=== PATIENT | male | born 1950 | race Caucasian/White ===

== ENCOUNTER 2021-02-10 13:55 | Outpatient (CLI) | payer MEDICARE, SELFPAY ==
--- NOTE | 2021-02-10 14:01 | ECHO_ITS ---
Patient Info Name: Simeon Montoya Age: 70 years : 1950 Gender: Male Ht: 73 in Wt: 280 lbs BSA: 2.60 m2 HR: 75 bpm BP: 147 / 90 mmHg Exam Date: 02/10/2021 2:03 PM Exam Location: [facility] Pulmonary Patient Status: Outpatient Admit Date: 02/10/2021 Staff Ordering Physician: Merrick Saha MD Income Tax Advisor: BETSY Attending Provider: Merrick Saha MD Referring Physician: Yifan FELICIANO; Exam Type: CA echo doppler color flow Study Info Indications R00.2 - Palpitations Complete two-dimensional, color flow and Doppler transthoracic echocardiogram is performed. Summary 1. Complete two-dimensional, color flow and Doppler transthoracic echocardiogram is performed. 2. Left ventricular chamber dimension is mildly enlarged. 3. Left ventricular systolic function is normal, estimated at 60-65%. 4. The left ventricular diastolic function is abnormal. 5. E/e' 14 is mildly elevated. 6. Left atrial chamber dimension is mildly enlarged. 7. There is mild mitral valve regurgitation. 8. There is trace tricuspid valve regurgitation. 9. No pulmonary hypertension, estimated pulmonary arterial systolic pressure is 11 mmHg. Left Ventricle E/e' 14 is mildly elevated. Left ventricular chamber dimension is mildly enlarged. Left ventricular systolic function is normal, estimated at 60-65%. The left ventricular diastolic function is abnormal. Right Ventricle Right ventricular chamber dimension is normal. Right ventricular systolic function is normal. Left Atria Left atrial chamber dimension is mildly enlarged. Right Atria Right atrial chamber dimension is normal. Aortic Valve The aortic valve is trileaflet. There is no aortic valve stenosis. There is no aortic valve regurgitation. Pulmonic Valve There is no pulmonic regurgitation. Mitral Valve There is no mitral valve stenosis. There is mild mitral valve regurgitation. Tricuspid Valve There is trace tricuspid valve regurgitation. No pulmonary hypertension, estimated pulmonary arterial systolic pressure is 11 mmHg. Pericardium/Pleural There is no pericardial effusion. Inferior Vena Cava Normal inferior vena cava with >50% collapse upon inspiration consistent with normal right atrial pressure, 5 mmHg. Aorta The aortic root size at the sinus of Valsalva is normal. Left Ventricular Outflow Tract Name Value Normal LVOT 2D LVOT Diameter 2.3 cm LVOT Doppler LVOT Peak Gradient 7 mmHg LVOT Mean Gradient 4 mmHg LVOT VTI 31 cm LVOT VTI/AV VTI Ratio 1.0 LVOT Stroke Volume 128 ml LVOT CO 22.1 l/min LVOT CI 8.5 l/min/m2 Mitral Valve Name Value Normal MV Doppler MV Decel [place]
== END 2021-02-10 13:56 | disposition home or self-care (01) ==
LOC: ANHCARD 13:57
PROVIDERS: PCP Internal Medicine; Visit Provider Internal Medicine
DX: I45.10 Unspecified right bundle-branch block (principal); R94.31 Abnormal electrocardiogram [ECG] [EKG]; I34.0 Nonrheumatic mitral (valve) insufficiency
CPT/HCPCS: 93306

== ENCOUNTER 2024-07-03 00:51 | Day surgery (SDC) | payer MEDICARE, SELFPAY ==
[2024-06-19 14:03] VITALS: BMI 30.2
--- OUTSIDE RECORDS SUMMARY | 2024-07-03 00:53 | XMS_ITS | Continuity of Care Document ---
Author Organization [facility] Address [address] [place] [address] Phone Care Team Providers Care Fraud Analyst Name Role Phone [facility], [employer] Includes [facility] Unavailable Unavail able Summer Kaufman Unavailable Unavailable Procedures Procedure Date Frame - Up To $135 TF Plastic Sphcyl [place] To +/-4d .122d Miscellaneous Vision Service - Supplies Anti-reflective Coating Eye Exam & Treatment Refraction No Charge Glasses Check Vision Svcs Frames Purchases TF Plastic Sphcyl [place] To +/-4d .12-2d Anti-reflective Coating Eye Exam & Treatment Refraction Advance Directives Directive Yes / No Effective Date File Name No Information Encounters Encounter Description Practice Location Reason(s) For Visit Diagnoses Date Provider Providers Copied on Encounter [facility], [address], [place], [place], [id number], [place] tel:[phone] [facility] No Information 4200 9 [facility] . [address] [facility] [address] [facility] [address], [place], [place], [address], [place]. tel:[phone] Referring Provider: Cosme Broderick, [address], [place], [address]. tel:[phone] sulting Provider: Summer Kaufman, [address] [place] [address], [address]. tel:[phone] [facility], [address], [place], [place], [id number], [place] tel:[phone] [facility] No Information Dec-0 8-200 9 Casillas OD Cosme. [address], [place], [place], Formerly named [facility], . tel:[phone] [facility], [address] [place] [address] [address], [place], [place], [id number], [place] tel:[phone] [facility] No Information 2 6200 [address] Casillas OD Cosme. [address], [place], [place], Formerly named [facility], . tel:[phone] [facility], [address] [place] [address] [address], [place], [place], [address], [place] tel:[phone] [facility] No Information 3 1200 7 Optical Shop [facility] . [address] [facility], [place], [place], [address], . tel:[phone] Referring Provider: Cosme Broderick, [facility] [address], [place], [address]. tel:[phone] sulting Provider: Summer Kaufman, [address] [place] [address], Formerly named [facility]. tel:[phone] [facility], [address] [place] [address] [address], [place], [place], [address], [place] tel:[phone] [facility] No Information 1 1-200 7 Casillas OD Cosme. [address], [place], [address], . tel:[phone] Family History Family Member Type Diagnosis Age At Onset No Information Payers Payer name Insurance type Covered libertarian ID Wendy penaloza(s) [employer] Vision Plan CI [id number] Social History Type Description Quantity Date Captured Comments Sex Male Smoking Status No Information Chief Complaint And Reason For Visit No Information Reason For Referral Reason For Referral No Information History Of Present Illness Encounter Date Complaint History Of Prese nt Illness No Information Functional Status Date Functional Assessmen t No Information Instructions Date Instruction Additional Infor mation No Information Assessments Type Assessment Date No Information Patient Care Teams Name Effective Dates (start - stop) Status Members No Information
--- OUTSIDE RECORDS SUMMARY | 2024-07-03 00:53 | XMS_ITS | Patient Health Summary ---
Author Organization [facility] Address [address] [facility] [place] [address] Care Team Providers Care Cambering Machine Operator Name Role Phone Unavailable Primary Care Provider Unavailabl e Note from [facility],non-owned Affiliates and Associated Physician Practices is amultiple site organization consisting of ambulatory clinics and hospital sitesin [place], [place], [place] and [place]. This disclosure is being madepursuant to the Care Everywhere program and may not contain all information available regarding this patient. Last updated 18.[facility] [employer] Social History Tobacco Use Types Packs/Day Years Used Date Smoking Tobacco: Never Assessed Sex and Gender Information Value Date Recorded Sex Assigned at Not on file Gender Identity Not on file Sexual Orientation Not on file Procedures * DERMATOPATHOLOGY(Performed 10/04/2017) * GROSS + MICRO EXAM(Performed 08/16/2005) Results * DERMATOPATHOLOGY (10/04/2017 12:00 AM CDT) Case Report Dermatopathology Report Case: [id number] Authorizing Provider: Jeovany Duenas MD Collected: 10/04/2017 12:00 AM Pathologist: Shaylee Kelly MD Received: 10/05/2017 12:44 PM Specimen: Skin, left amrit anti helicis 8 1:57 PM CDT DERMATOPATHOLOGY LABORATORY Final Diagnosis Specimen A. SKIN, left amrit anti helicis: BENIGN VERRUCOUS KERATOSIS (L82.1) PRESENT AT MARGIN 8 1:57 PM CDT DERMATOPATHOLOGY LABORATORY Clinical History R/O BCC, ISK. Check margins. 8 1:57 PM CDT DERMATOPATHOLOGY LABORATORY Gross Description Specimen A: Received is one formalin filled container labeled with the patient's name and designated left amrit anti helicis. The specimen consists of a shave biopsy measuring [id number]. The margin is inked green. Jar 0. 1:57 PM CDT DERMATOPATHOLOGY LABORATORY Microscopic Description Specimen A. SKIN, left amrit anti helicis: Sections show hyperkeratosis, papillomatosis, hypergranulosis, and acanthosis. These histological findings can be seen in a verruca vulgaris or a seborrheic keratosis. This lesion is present at the margin of the specimen. 1:57 PM CDT DERMATOPATHOLOGY LABORATORY Disclaimer An external and internal positive and negative controls are appropriate for the histochemical, immunohistochemical and immunofluorescence stain(s) in this case (if any), except where stated explicitly. The performance characteristics of the stain(s) cited in this report were developed and its performance characteristic determined by the Dermatopathology Laboratory at [facility]. These tests need not be, and therefore are not, approved by the [place] Food and Drug Administration. The tests are used for clinical purposes. Billing Codes Specimen Charges Stain Charges 63135 1 1:57 PM CDT DERMATOPATHOLOGY LABORATORY Embedded Images 1:57 PM CDT DERMATOPATHOLOGY LABORATORY Pathology/Cytolog y TISSUE SPECIMEN FROM SKIN / Unknown 10/04/2017 10/05/2017 12:44 PM CDT Jeovany Duenas MD LAB - PATHOLOGY/CYTO LOGY ORDERABLES DERMATOPATHOLOGY LABORATORY [facility] - Department of Dermatology [address] [place] [address] 5th Floor Lab [address] [phone] * GROSS + MICRO EXAM (08/16/2005 2:15 PM CDT) Result CASE NUMBER [id number] Comment: ORDERING PHYSICIAN POOJA SUMNER SPECIMEN TYPE Colon Biopsy-rectal bx Date 08/16/2005 Physician Evans Sumner Gross Description The specimen is received in two containers labeled with the patient's name, Simeon Montoya. 1) The first container is labeled rectal. It consists of two 1 mm fragments of light jernigan tissue, all submitted in cassette A. 2) The second container is labeled rectal polyp. It consists of two 1 and 6 mm fragments of red jernigan tissue, the larger of which is bisected, and the specimen is entirely submitted in cassette B. LW alcocer Microscopic Exam Microscopic examination of sections labeled A reveal multiple fragments of colonic mucosa exhibiting an intact surface epithelium. No evidence of ulceration or erosion is seen. The crypts are tubular and lined by a normal goblet cell population. However, one fragment shows tubule exhibiting cryptitis and loss of mucin production. The surrounding stroma is edematous and shows marked vascular congestion with microfocal areas of hemorrhage. This same fragment exhibits surface epithelium also infiltrated with scattered polymorphonuclear leukocytes. However, a well- developed crypt abscesses are not seen. The changes described are focal with other portions of the bowel showing essentially normal histologic features. No evidence of crypt irregularity is seen. Granulomas are not identified. Evidence of coagulative necrosis are not seen. Pseudomembranes are not present. Microscopic examination of sections labeled B reveal multiple fragments of colonic mucosa, the surface epithelium of which is largely denuded. The fragments exhibit a lamina propria that is edematous and show irregular colonic glands that are variable in size and shape, but nevertherless, exhibiting a mucin-secreting epithelial lining. Many of the fragments show splaying of smooth muscle fibers between the colonic glands focally extending to the surface. The denuded epithelium shows no associated acute inflammatory changes. No evidence of malignancy is seen. RT/na Diagnosis I. Biopsy of rectum -- Acute colotis, focal, nonspecific II. 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 [place]. 08/17/2005 0927 <2> CPT code 35610z4 MISCELLANEOUS SAMPLES / Unknown 08/16/2005 2:15 PM CDT 08/16/2005 2:15 PM CDT Historical Provider LAB - PATHOLOGY/C YTOLOGY ORDERABLES
--- OUTSIDE RECORDS SUMMARY | 2024-07-03 00:53 | XMS_ITS | Referral Summary ---
Author Organization [facility] Address [address] [facility] [place] [address] Care Team Providers Care Seat Covers Trimmer Name Role Phone Unavailable Primary Care Provider Unavailabl e Source Comments [facility],non-owned Affiliates and Associated Physician Practices is amultiple site organization consisting of ambulatory clinics and hospital sitesin [place], [place], [place] and [place]. This disclosure is being madepursuant to the Care Everywhere program and may not contain all information available regarding this patient. Last updated 18.[facility] [employer] Social History Tobacco Use Types Packs/Day Years Used Date Smoking Tobacco: Never Assessed Sex and Gender Information Value Date Recorded Sex Assigned at Not on file Gender Identity Not on file Sexual Orientation Not on file Plan of Treatment Not on file
--- OUTSIDE RECORDS SUMMARY | 2024-07-03 00:53 | XMS_ITS | Encounter Summary ---
Author Organization [facility] Address [address] [facility] [place] [address] Care Team Providers Care Cloth Tester Quality Name Role Phone Unavailable Primary Care Provider Unavailabl e Encounter Details Date Type Department Care Team (Late st Contact Info) Description 10/05/2017 Lab Requisition [facility] Care DermPath Lab [address] [facility] [place] [address] Jeovany Duenas MD [address] [place] [address] Social History Tobacco Use Types Packs/Day Years Used Date Smoking Tobacco: Never Assessed Sex and Gender Information Value Date Recorded Sex Assigned at Not on file Gender Identity Not on file Sexual Orientation Not on file documented as of this encounter Plan of Treatment Not on file documented as of this encounter Procedures Procedure Name Priority Date/Time Associated Diagnosis Comments DERMATOPATHOLOGY Routine 10/04/2017 12:0 0 AM CDT documented in this encounter Results * DERMATOPATHOLOGY (10/04/2017 12:00 AM CDT) Case Report Dermatopathology Report Case: [id number] Authorizing Provider: Jeovany Duenas MD Collected: 10/04/2017 [...] specimen consists of a shave biopsy measuring [id number]. The margin is inked green. Jar 0. 1:57 PM T DERMATOPATHOLOGY LABORATORY Microscopic Description Specimen A. SKIN, left amrit anti helicis: Sections show hyperkeratosis, papillomatosis, hypergranulosis, and acanthosis. These histological findings can be seen in a verruca vulgaris or a seborrheic keratosis. This lesion is present at the margin of the specimen. 1:57 PM T DERMATOPATHOLOGY LABORATORY Disclaimer An external and internal positive and negative controls are appropriate for the histochemical, immunohistochemical and immunofluorescence stain(s) in this case (if any), except where stated explicitly. The performance characteristics of the stain(s) cited in this report were developed and its performance characteristic determined by the Dermatopathology Laboratory at [facility]. These tests need not be, and therefore are not, approved by the [place] Food and Drug Administration. The tests are used for clinical purposes. Billing Codes Specimen Charges Stain Charges 61911 1 8 1:57 PM CDT DERMATOPATHOLOGY LABORATORY Embedded Images 1:57 PM CDT DERMATOPATHOLOGY LABORATORY Pathology/Cytolog y TISSUE SPECIMEN FROM SKIN / Unknown 10/04/2017 10/05/2017 12:44 PM CDT Jeovany Duenas MD LAB - PATHOLOGY/CYTO LOGY ORDERABLES Performing Organization Address City/State/[facility] Co de Phone Number DERMATOPATHOLOGY LABORATORY [facility] - Department of Dermatology [address] [place] [address], 5th [place] [address], [facility] [phone] documented in this encounter Visit Diagnoses Not on filedocumented in this encounter
--- OUTSIDE RECORDS SUMMARY | 2024-07-03 00:53 | XMS_ITS | Clinical Summary ---
Author Organization [facility] [place] Address [address] [facility] [place] [address] Care Team Providers Care Flake Miller Helper Name Role Phone Unavailable Primary Care Provider Unavailabl e Source Comments [facility],non-owned Affiliates and Associated Physician Practices is amultiple site organization consisting of ambulatory clinics and hospital sitesin [place], [place], [place] and [place]. This disclosure is being madepursuant to the Care Everywhere program and may not contain all information available regarding this patient. Last updated 18.[facility] Social History Tobacco Use Types Packs/Day Years Used Date Smoking Tobacco: Never Assessed Sex and Gender Information Value Date Recorded Sex Assigned at Not on file Gender Identity Not on file Sexual Orientation Not on file Plan of Treatment Health Maintenance Due Date Last Done Comments COLOGUARD (AGES 45-75) - COL ON CA SCREENING 1950 COLON MONITORING 1950 COLONOSCOPY - COLON CA SCREENING 1950 CT COLONOGRAPHY - COLON CA SCREENING 1950 Colorectal Cancer Screening 1950 FIT - COLON CA SCREENING 1950 FLEX SIG - COLON CA SCREENING 1950 LIPID TESTING 1950 HEPATITIS C SCREENING 04/24/1970 DTAP/TDAP/TD VACCINES (1 - Tdap) 1971 PNEUMOCOCCAL VACCINE 50+ (1 of 1 - PCV) 2002 ZOSTER VACCINE (1 of 2) 2002 COVID-19 VACCINE ( - 2023-2 5 season) 2024 INFLUENZA VACCINE (#1) 2024 DEPRESSION SCREENING 05/09/2024 MEDICARE AWV CALENDAR YEAR 2024 Respiratory Syncytial Virus (RSV) Vaccine Pt: or over 60 yrs (1 - 1-dose 75+ series) 2027 HEPATITIS B VACCINE Aged Out No longe r eligible based on patient's age to complete this topic HIB VACCINE Aged Out No longer eligi ble based on patient's age to complete this topic HPV VACCINE Aged Out No longer eligi ble based on patient's age to complete this topic MENINGOCOCCAL (Group B) VACCINE Aged Out No longer eligible based on patient's age to complete this topic MENINGOCOCCAL VACCINE Aged Out No екатерина randy eligible based on patient's age to complete this topic
[2024-07-03 07:11] VITALS: BP 144/76; PULSE 78; RESP 18; TEMP 36.2; O2SAT 98; BMI 29.8
[2024-07-03] MEDS: LACTATED RINGERS 1,000 ML 150 ML IV CONT (07:18)
--- NOTE | 2024-07-03 07:18 | WPDANESEPPF ---
Anes - Initial Pre Proc Eval Procedure: Operation Date: 07/03/24 08:30 Proposed Procedures p Colonoscopy - Sedrick Robledo MD Date/Time: 07/03/24 07:18 Surgeon: Sedrick Robledo MD Pre Op Diagnosis: hx of colon polyps Patient Data Age: 74 Gender: M Height: 1.88 m Weight: 105.4 kg Last Vital Signs Temp 36.2 C L 07/03/24 07:11 Pulse 78 07/03/24 07:11 Resp 18 07/03/24 07:11 BP 144/76 H 07/03/24 07:11 Pulse Ox 98 07/03/24 07:11 O2 Del Method Room Air 07/03/24 07:11 Allergies Allergy/AdvReac Type Severity Reaction Status Date / Time latex Allergy Unknown Rash Verified 07/03/24 07:09 Home Medications ?Medication ?Instructions ?Recorded ?Confirmed ?Type glucosamine HCl 1,500 mg tablet 1,500 mg PO DAILY 04/10/19 07/03/24 History multivitamin 1 tablet PO DAILY 04/10/19 06/19/24 History omega-3 fatty acids 1,000 mg 1,000 mg PO BID 04/10/19 07/03/24 History capsule (Fish Oil Concentrate) tadalafil 20 mg tablet (Cialis) 20 mg PO DAILY PRN erectile 10/29/20 06/19/24 Rx dysfuncdtion #90 tabs Elderberry BYMOUTH 03/29/23 03/16/24 History Super Beets BYMOUTH 03/29/23 03/16/24 History berberine chloride 500 mg capsule mg PO 03/16/24 03/16/24 History collagen BYMOUTH 2XD 03/16/24 03/16/24 History losartan 100 mg tablet 100 mg PO DAILY #90 tabs 04/09/24 07/03/24 Rx verapamil 240 mg tablet,extended See Rx Instructions .Route 04/16/24 07/03/24 Rx release .COMPLEX #90 tabs omeprazole 40 mg capsule,delayed See Rx Instructions .Route 04/20/24 07/03/24 Rx release .COMPLEX #90 caps rosuvastatin 5 mg tablet See Rx Instructions .Route 04/20/24 07/03/24 Rx .COMPLEX #90 tabs ezetimibe 10 mg tablet See Rx Instructions .Route 06/22/24 07/03/24 Rx .COMPLEX #90 tabs Patient hx anesthesia problems: none Family hx anesthesia problems: none Results Review: All pre-operative results and documents have been reviewed as part of the pre-operative evaluation. [facility] Past Medical History Medical History (Updated 03/16/24 @ 07:37 by Taty Valdez [facility]) Back pain BMI 32.0-32.9,adult Prostate cancer screening BMI 38.0-38.9,adult Cataract fragments of both eyes following cataract surgery Colon cancer screening Diastolic dysfunction BMI 36.0-36.9,adult BMI 39.0-39.9,adult Ganglion cyst RBBB (right bundle branch block) Elevated LFTs DJD (degenerative joint disease), multiple sites Elevated homocysteine Hx of colonic polyps PVC's (premature ventricular contractions) BMI 37.0-37.9, adult Hearing loss Statin intolerance Able to tolerate Crestor Pre-diabetes Encounter for Medicare annual wellness exam Erectile dysfunction On [facility] drug therapy DJD (degenerative joint disease) of knee GERD (gastroesophageal reflux disease) Hyperlipidemia Benign essential hypertension Abnormal glucose level Encounter for general adult medical examination w/o abnormal findings Family History Family History Mother Patient's mother is in good health Father Family history of coronary artery disease Social History Social History (Reviewed 03/16/24 @ 07:18 by Taty Valdez [facility]) Smoking status: Never smoker Second hand tobacco smoke exposure: No Alcohol intake: current Substance use: never Substance use type: does not use Concerned About Future Housing: Decline to Answer Difficulty Paying Gas/Electric Bills: Decline to Answer Difficulty Paying for Meds: Decline to Answer Currently Unemployed: Decline to Answer Education: Decline to Answer Difficulty w/ Childcare or Family Care: No Living arrangements: with family Occupation/Education: retired Gender identity (if verbalized by the patient): Male Spiritual care concerns: No Anes - Eval Final PreProcedure Day of Procedure 07/03/24 07:18 Patient weight: overweight Heart: regular rate and rhythm Lungs: clear to auscultation Airway: Mallampati scale class II Neurological: alert and oriented Last oral intake: >/= 8 hours ASA classification: III Emergent: no Anesthetic plan: proceed Anesthesia type and monitoring: general GIVS and standard monitoring Results Review: All pre-operative results and documents have been reviewed as part of the pre-operative evaluation. Informed Consent: The patient's anesthetic plan and its attendant risks and benefits were discussed with the patient/family/POA. Questions were solicited and answers provided to the satisfaction of the patient/family/POA.
--- NOTE | 2024-07-03 08:15 | P.HP_ITS ---
History of Present Illness History of Present Illness Consent: Risks, benefits, and alternatives have been discussed and questions answered. Patient agrees to proceed with procedure. Chief complaint: hx of colon polyps Narrative: Simeon Montoya Jr. is a 74 year old male with colon polyp 5 years ago Review of Systems Review of Systems: All systems reviewed & are unremarkable except as noted in HPI and below PMFSH Past Medical History Medical History (Updated 03/16/24 @ 07:37 by Taty Valdez [facility]) Back pain BMI 32.0-32.9,adult Prostate cancer screening BMI 38.0-38.9,adult Cataract fragments of both eyes following cataract surgery Colon cancer screening Diastolic dysfunction BMI 36.0-36.9,adult BMI 39.0-39.9,adult Ganglion cyst RBBB (right bundle branch block) Elevated LFTs DJD (degenerative joint disease), multiple sites Elevated homocysteine Hx of colonic polyps PVC's (premature ventricular contractions) BMI 37.0-37.9, adult Hearing loss Statin intolerance Able to tolerate Crestor Pre-diabetes Encounter for Medicare annual wellness exam Erectile dysfunction On custodial drug therapy DJD (degenerative joint disease) of knee GERD (gastroesophageal reflux disease) Hyperlipidemia Benign essential hypertension Abnormal glucose level Encounter for general adult medical examination w/o abnormal findings Family History Family History Mother Patient's mother is in good health Father Family history of coronary artery disease Social History Social History Smoking status: Never smoker Second hand tobacco smoke exposure: No Alcohol intake: current Substance use: never Substance use type: does not use Concerned About Future Housing: Decline to Answer Difficulty Paying Gas/Electric Bills: Decline to Answer Difficulty Paying for Meds: Decline to Answer Currently Unemployed: Decline to Answer Education: Decline to Answer Difficulty w/ Childcare or Family Care: No Living arrangements: with family Occupation/Education: retired Gender identity (if verbalized by the patient): Male Spiritual care concerns: No Meds Home Medications and Allergies Home Medications ?Medication ?Instructions ?Recorded ?Confirmed ?Type glucosamine HCl 1,500 mg tablet 1,500 mg PO DAILY 04/10/19 07/03/24 History multivitamin 1 tablet PO DAILY 04/10/19 06/19/24 History omega-3 fatty acids 1,000 mg 1,000 mg PO BID 04/10/19 07/03/24 History capsule (Fish Oil Concentrate) tadalafil 20 mg tablet (Cialis) 20 mg PO DAILY PRN erectile 10/29/20 06/19/24 Rx dysfuncdtion #90 tabs Elderberry BYMOUTH 03/29/23 03/16/24 History Super Beets BYMOUTH 03/29/23 03/16/24 History berberine chloride 500 mg capsule mg PO 03/16/24 03/16/24 History collagen BYMOUTH 2XD 03/16/24 03/16/24 History losartan 100 mg tablet 100 mg PO DAILY #90 tabs 04/09/24 07/03/24 Rx verapamil 240 mg tablet,extended See Rx Instructions .Route 04/16/24 07/03/24 Rx release .COMPLEX #90 tabs omeprazole 40 mg capsule,delayed See Rx Instructions .Route 04/20/24 07/03/24 Rx release .COMPLEX #90 caps rosuvastatin 5 mg tablet See Rx Instructions .Route 04/20/24 07/03/24 Rx .COMPLEX #90 tabs ezetimibe 10 mg tablet See Rx Instructions .Route 06/22/24 07/03/24 Rx .COMPLEX #90 tabs Allergies Allergy/AdvReac Type Severity Reaction Status Date / Time latex Allergy Unknown Rash Verified 07/03/24 07:09 Vital Signs Vital Signs - 24 hr 07/03/24 07:11 Temperature 97.1 F L Pulse Rate 78 Respiratory Rate 18 Blood Pressure 144/76 H Pulse Oximetry 98 Oxygen Delivery Room Air Exam Const: General: comfortable and no acute distress HENMT: Face/Nose/Sinus: Normal nares present Eyes: General: appearance normal, both eyes and all related structures Neck: Neck: no JVD Resp: Auscultation: clear to auscultation bilaterally Cardio: Rate: regular rate Rhythm: regular rhythm GI: Inspection: non-distended GI Palp: Yes Soft to palpation Skin: General skin exam: normal color Neuro: General: gait normal Speech: normal speech Extrem: General: normal to inspection Psych: Mental Status: mental status grossly normal Assessment and Plan Assessment and plan (1) Hx of colonic polyps: Code(s): Z86.010 - Personal history of colon polyps Status: Acute Assessment and Plan: colonoscopy
[2024-07-03 08:36] VITALS: BP 120/56; PULSE 66; RESP 16; O2SAT 99
[2024-07-03 08:46] VITALS: BP 117/76; PULSE 76; RESP 18; O2SAT 99
[2024-07-03 08:56] VITALS: BP 133/69; PULSE 70; RESP 19; O2SAT 100
== END 2024-07-03 09:07 | disposition home or self-care (01) ==
PROVIDERS: PCP Internal Medicine; Visit Provider Internal Medicine Gastroenterology
PROC: 0DJD8ZZ Inspection of Lower Intestinal Tract, Via Natural or Artificial Opening Endoscopic (ICD-10-PCS; CPT 45378; principal; 2024-07-03 08:30)
DX: Z12.11 Encounter for screening for malignant neoplasm of colon (principal); K63.5 Polyp of colon; K64.8 Other hemorrhoids
CPT/HCPCS: 45385; 88305; J2003; J2704; J7120

== ENCOUNTER 2025-04-26 12:45 | Outpatient (CLI) | payer MEDICARE, SELFPAY ==
--- OUTSIDE RECORDS SUMMARY | 2025-04-26 12:48 | XMS_ITS | Clinical Summary ---
Author Organization [facility] Address [address] [place] [address] Care Team Providers Care Surface Hydrologist Name Role Phone Unavailable Primary Care Provider Unavailabl e Source Comments [facility],non-owned Affiliates and Associated Physician Practices is amultiple site organization consisting of ambulatory clinics and hospital sitesin [place], [place], [place] and [place]. This disclosure is being madepursuant to the Care Everywhere program and may not contain all information available regarding this patient. 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 Gender Identity Not on file Sexual Orientation [...] 2002 ZOSTER VACCINE (1 of 2) 2002 DEPRESSION SCREENING 05/09/2024 MEDICARE AWV CALENDAR YEAR 2024 COVID-19 VACCINE (1 - 2024-2 6 season) 2025 INFLUENZA VACCINE (#1) 2025 Respiratory Syncytial Virus (RSV) Vaccine Pt: or [...] to complete this topic MENINGOCOCCAL (Group B) VACC INE SHARED DECISION-MAKING Aged Out No longer eligibl e based on patient's age to complete this topic MENINGOCOCCAL GROUPS A/C/Y/W VACCINE Aged Out No longer eligible b ased on patient's age to complete this topic Insurance [facility] MANAGED MEDICARE ADV A[employer] MEDICARE ADV SELF PAY NO INSURANCE Member Subscriber Plan / Payer (Ef fective for All Dates) Name:Simeon Montoya Member ID:Not on file Relation to Subscriber:Not on file Name:SIMEON MONTOYA Subscriber ID:Not on file (Home) Address: [address] [place] [phone] Payer ID:Not on file Group ID:Not on file Type:Self Pay Address: [place], [place]
--- OUTSIDE RECORDS SUMMARY | 2025-04-26 12:48 | XMS_ITS | Clinical Summary ---
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 Gender Identity Not on file Sexual Orientation Not on file Plan of Treatment Health Maintenance Due Date Last Done Comments Colorectal Cancer Screening Colonoscopy (10 Years) 1952 Hepatitis C 1970 DTaP, Tdap and Td Vaccines ( 1 - Tdap) 1971 Pneumococcal Vaccine: 50+ Ye ars (1 of 1 - PCV) 2002 Zoster Vaccines (1 of 2) 2002 COVID-19 Vaccine ( - 2024-2 6 season) 2025 Influenza Adult (#1) 2025 RSV Immunization or 60+ Years (1 - 1-dose 75+ series) 2027 Hepatitis A Vaccines Aged Out No long er eligible based on patient's age to complete this topic Meningococcal B Vaccine Aged Out No l onger eligible based on patient's age to complete this topic Meningococcal Vaccine Aged Out No екатерина randy eligible based on patient's age to complete this topic RSV Immunizations Under 20 Months Aged Out No longer eligible based on patient's age to complete this topic Insurance AETNA Care Teams Care Taker Relationship Specialty Start Date End Date Merrick Saha MD [address] [facility] [address] [place] [phone] PCP - General INTERNAL MEDICINE 10/30/24
--- OUTSIDE RECORDS SUMMARY | 2025-04-26 12:48 | XMS_ITS | Clinical Summary ---
Author Organization [facility] Address [address] [place] [address] Care Team Providers Care Equipment Services Associate Name Role Phone No, Pcp GROUP SOCIAL WORKER Primary Care Provider Unavailabl e Social History Tobacco Use Types Packs/Day Years Used Date Smoking Tobacco: Never Assessed Sex and Gender Information Value Date Recorded Sex Assigned at Not on file Legal Sex Male 12:46 PM EDT Gender Identity Not on file Sexual Orientation Not on file Plan of Treatment Not on file Medical Devices Not on file Insurance [facility] MEDICARE Care Teams Equipment Services Associate Relationship Specialty Start Date End Date No, Pcp, GROUP SOCIAL WORKER N/A Do not use PCP - General Family Medicine 11/10/20
--- OUTSIDE RECORDS SUMMARY | 2025-04-26 12:48 | XMS_ITS | Encounter Summary ---
Author Organization [facility] Address [address] [place] [address] Care Team Providers Care Process Development Manager Name Role Phone Unavailable Primary Care Provider Unavailabl e Encounter Details Date Type Department Care Team (Late st Contact Info) Description 10/05/2017 Lab Requisition [facility] Lab [address] [facility] [place] [id number] Jeovany Duenas MD [address] [place] [address] Social History Tobacco Use Types Packs/Day Years Used Date Smoking Tobacco: Never Assessed Sex and Gender Information Value Date Recorded Sex Assigned at Not on file 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 Gender Identity Not on file Sexual Orientation Not on file documented as of this encounter Plan of Treatment Not on file documented as of this encounter Procedures Procedure Name Priority Date/Time Associated Diagnosis Comments DERMATOPATHOLOGY Routine 10/04/2017 12:0 0 AM CDT documented in this encounter Results * DERMATOPATHOLOGY (10/04/2017 12:00 AM CDT) Case Report Dermatopathology Report Case: [id number] Authorizing Provider: Jeovany Duenas MD Collected: 10/04/2017 12:00 AM Pathologist: Shaylee Kelly MD Received: 10/05/2017 12:44 PM Specimen: Skin, left amrit anti helicis 8 1:57 PM CDT DERMATOPATHOLOGY LABORATORY Final Diagnosis Specimen A. SKIN, left amrit anti helicis: BENIGN VERRUCOUS KERATOSIS (L82.1) PRESENT AT MARGIN 8 1:57 PM CDT DERMATOPATHOLOGY LABORATORY at 1357 CDT Clinical History R/O BCC, ISK. Check margins. 1:57 PM CDT DERMATOPATHOLOGY LABORATORY Gross Description Specimen A: Received is one formalin filled container labeled with the patient's name and designated left amrit anti helicis. The specimen consists of a shave biopsy measuring [id number]. The margin is inked green. Jar 0. [...] characteristic determined by the Dermatopathology Laboratory at [facility]. These tests need not be, and therefore are not, approved by the [place] Food and Drug Administration. The tests are used for clinical purposes. Billing Codes Specimen Charges Stain Charges 15683 1 1:57 PM CDT DERMATOPATHOLOGY LABORATORY Embedded Images 1:57 PM CDT DERMATOPATHOLOGY LABORATORY Pathology/Cytolog y TISSUE SPECIMEN FROM SKIN / Unknown 10/04/2017 10/05/2017 12:44 PM CDT Jeovany Duenas MD LAB - PATHOLOGY/CYTOLOGY ORD ERABLES Final Result DERMATOPATHOLOGY LABORATORY [facility] - Department of Dermatology [address] [place] [address], [facility] [phone] documented in this encounter Visit Diagnoses Not on filedocumented in this encounter
== END 2025-04-26 12:46 | disposition home or self-care (01) ==
LOC: ANHAUDIO 12:46
PROVIDERS: PCP Internal Medicine; Visit Provider Otolaryngology
DX: H91.8X3 Other specified hearing loss, bilateral (principal); H93.13 Tinnitus, bilateral
CPT/HCPCS: 92557; 92567